=== PATIENT | male | born 1955 | race Asian ===

== ENCOUNTER 2019-01-28 11:23 | Inpatient (IN) | payer MEDICARE, MEDICAID ==
[~2019-01-28] VITALS: Ht 170.2 cm; Wt 62.6 kg
[2019-01-28] MEDS ORDERED: AMLO5TAB9 PO (11:46)
[2019-01-28] MEDS ORDERED: ATOR80TA PO (11:46)
[2019-01-28] MEDS ORDERED: LOSA100T31 PO (11:46)
[2019-01-28] MEDS ORDERED: COLC0.6C3 PO (11:46)
[2019-01-28] MEDS ORDERED: ALPR0.5T8 PO (11:46)
[2019-01-28] MEDS ORDERED: DULO60CA45 GT (11:46)
[2019-01-28] MEDS ORDERED: DONE5TAB34 PO (11:46)
[2019-01-28] MEDS ORDERED: CARV25TA2 PO (11:46)
[2019-01-28] MEDS ORDERED: ACET650T10 PO (11:46)
[2019-01-28 11:49] LABS: BASOPHILS # (AUTO) 0.1 K/uL (0.0-8.0); BASOPHILS % (AUTO) 0.7 % (0.0-2.0); EOSINOPHILS # (AUTO) 0.1 K/uL (0.0-0.7); EOSINOPHILS % (AUTO) 1.5 % (0.0-7.0); HEMATOCRIT 40.7 % (36.7-47.1); HEMOGLOBIN 13.8 g/dL (12.5-16.3); LYMPHOCYTES # (AUTO) 1.5 K/uL (20.0-40.0); LYMPHOCYTES % (AUTO) 16.2 % (20.5-51.5); MEAN CORPUSCULAR HEMOGLOBIN 30.8 uug (23.8-33.4); MEAN CORPUSCULAR HGB CONC 34 g/dL (32.5-36.3); MEAN CORPUSCULAR VOLUME 90.7 fL (73.0-96.2); MONOCYTES # (AUTO) 0.9 K/uL (2.0-10.0); MONOCYTES % (AUTO) 10.1 % (0.0-11.0); NEUTROPHILS # (AUTO) 6.7 K/uL (1.8-8.9); NEUTROPHILS % (AUTO) 71.5 % (38.5-71.5); PLATELET COUNT (AUTO) 289 K/uL (152-348); RED BLOOD CELL COUNT(AUTO) 4.49 MIL/uL (4.06-5.63); WHITE BLOOD COUNT (AUTO) 9.3 K/uL (3.6-10.2)
[2019-01-28 11:55] LABS: CREATININE 1.4 mg/dL (0.6-1.3); POTASSIUM 4.1 mmol/L (3.5-5.1)
[2019-01-28 12:01] LABS: BILIRUBIN,DIRECT 0.2 mg/dL (0.0-0.2); BILIRUBIN,TOTAL 0.9 mg/dL (0.2-1.0); TOTAL PROTEIN, SERUM 7.4 g/dL (6.4-8.2)
--- NOTE | 2019-01-28 12:46 | NUR ---
Patient is resting comfortably on gurney with eyes closed, easily arousable. PATIENT IS PAIN FREE AT THIS TIME. Patient is waiting for results and disposition.
[2019-01-28 13:33] LABS: *BILIRUBIN,URIN NEGATIVE (NEGATIVE); *BLOOD, URINE NEGATIVE (NEGATIVE); *CLARITY,URINE CLEAR (CLEAR); *COLOR,URINE YELLOW (YELLOW); *KETONES,URINE NEGATIVE (NEGATIVE); *UROBILINOGEN,URINE 0.2 E.U./dl (NORMAL); LEUKOCYTE ESTERASE ,URINE NEGATIVE (NEGATIVE); NITRITE, URINE NEGATIVE (NEGATIVE); UGLUCOSE NEGATIVE (NEGATIVE)
--- NOTE | 2019-01-28 13:47 | NUR ---
Patient admitted to telemetry room 308, under care of Dr. Marroquin. Belongings List completed. MRSA swab sent to lab.
[2019-01-28] MEDS ORDERED: HYDROCODONE/APAP 5-325MG TABLET PO PRN (14:00)
[2019-01-28] MEDS ORDERED: ACETAMINOPHEN 325 MG TABLET PO PRN (14:00)
[2019-01-28] MEDS ORDERED: Z GUARD REMEDY PASTE 57 GM TUBE TOP PRN (14:00)
[2019-01-28] MEDS ORDERED: MAGNESIUM HYDROXIDE 30 ML LIQUID UDC PO PRN (14:00)
[2019-01-28] MEDS ORDERED: ONDANSETRON 4 MG/2 ML VIAL IV PRN (14:00)
--- NOTE | 2019-01-28 15:00 | NUR ---
ADMITTED FROM [facility] ER WITH ADMITTING DX OF WEAKNESS. AWAKE ALERT AND VERBALLY RESPONSIVE BUT SPEECH IS SLURRED DUE TO HX OF CVA IN THE PAST. TESTED FOR SWALLOWING PATIENT ABLE TO TOLERATE THIN LIQUID, NO SS OF CHOKING, COUGHING OR ASPIRATION. PATIENT HAS A GT INTACT BUT PATIENT IS SAYING "NOT BEING USED" SR ON MONITOR. ROUTINE ADMISSION ASSESSMENT INITIATED. DR HOOK AWARE OF ADMISSION
[2019-01-28 16:00] VITALS: BP 114/62
[2019-01-28] MEDS: CARVEDILOL 25 MG TABLET PO SCH (17:21)
[2019-01-28] MEDS: IV NS 1000 ML 1,000 ML IV PRN (17:23)
--- NOTE | 2019-01-28 19:20 | NUR ---
RECEIVED PT AWAKE, ALERT AND ORIENTEDX3. PT SHOWS NO SIGNS OF ACUTE DISTRESS. IV INTACT. PT HAS A GT INTACT.SAFETY AND COMFORT PROVIDED. WILL CONTINUE TO MONITOR.
[2019-01-28 19:30] VITALS: BP 116/81
[2019-01-28] MEDS: ATORVASTATIN 40 MG TABLET PO SCH (20:26)
[2019-01-28] MEDS: ALPRAZOLAM 0.5 MG TABLET PO SCH (20:26)
[2019-01-28] MEDS: DONEPEZIL 5 MG TABLET PO SCH (20:26)
[2019-01-28] MEDS: ENOXAPARIN SODIUM 40 MG/0.4 ML DISP.SYRIN SQ SCH (20:27)
[2019-01-28] MEDS ORDERED: INFLUENZA VACCINE 2019-2020 0.5 ML DISP.SYRIN IM ONE (21:00)
[2019-01-29 00:30] VITALS: BP 118/79
[2019-01-29 05:03] VITALS: BP 118/91
--- NOTE | 2019-01-29 06:20 | NUR ---
PT SLEPT THROUGHOUT THE SHIFT. PT SHOWS NO SIGNS OF ACUTE DISTRESS. IV INTACT. PRESCRIBED MEDICATION GIVEN AND PT TOLERATED IT WELL. PT REFUSED HIS SEQUENTIAL COMPRESSION DEVICE. SAFETY AND COMFORT PROVIDED. WILL ENDORSE TO INCOMING NURSE FOR CONTINUITY OF CARE.
[2019-01-29 06:37] LABS: BASOPHILS % (AUTO) 0.3 % (0.0-2.0); EOSINOPHILS # (AUTO) 0.2 K/uL (0.0-0.7); EOSINOPHILS % (AUTO) 1.8 % (0.0-7.0); HEMATOCRIT 40.6 % (36.7-47.1); HEMOGLOBIN 13.7 g/dL (12.5-16.3); LYMPHOCYTES # (AUTO) 1.4 K/uL (20.0-40.0); LYMPHOCYTES % (AUTO) 15.7 % (20.5-51.5); MEAN CORPUSCULAR HGB CONC 34 g/dL (32.5-36.3); MEAN CORPUSCULAR VOLUME 92.4 fL (73.0-96.2); MONOCYTES # (AUTO) 0.7 K/uL (2.0-10.0); MONOCYTES % (AUTO) 8.3 % (0.0-11.0); NEUTROPHILS # (AUTO) 6.4 K/uL (1.8-8.9); NEUTROPHILS % (AUTO) 73.9 % (38.5-71.5); PLATELET COUNT (AUTO) 248 K/uL (152-348); WHITE BLOOD COUNT (AUTO) 8.7 K/uL (3.6-10.2)
[2019-01-29] MEDS: IV NS 1000 ML 1,000 ML IV PRN ×2 (06:43→21:23)
[2019-01-29 07:17] LABS: CREATININE 1.5 mg/dL (0.6-1.3); MAGNESIUM 1.6 mg/dL (1.8-2.4)
[2019-01-29 07:20] LABS: THYROID STIMULATING HORMONE 1.358 mIU/mL (0.358-3.740)
--- NOTE | 2019-01-29 08:00 | NUR ---
AWAKE ALERT AND RESPONDING APPROPRIATELY. NO SS OF PAIN OR DISTRESS. SR ON MONITOR
[2019-01-29] MEDS: DULOXETINE 60 MG CAPSULE.DR PO SCH (08:57)
[2019-01-29] MEDS: CARVEDILOL 25 MG TABLET PO SCH ×2 (08:58→16:45)
[2019-01-29] MEDS: AMLODIPINE 5 MG TABLET PO SCH (08:59)
[2019-01-29] MEDS: LOSARTAN POTASSIUM 50 MG TABLET PO SCH (08:59)
[2019-01-29] MEDS ORDERED: INFLUENZA VACCINE 2019-2020 0.5 ML DISP.SYRIN IM ONE ×2 (09:00→17:00)
--- NOTE | 2019-01-29 10:00 | NUR ---
SEEN BY DR MONROE FOR NEPHRO FOLLOW-UP SEE NOTES
[2019-01-29 11:05] VITALS: BP 105/68
--- NOTE | 2019-01-29 12:30 | NUR ---
EATING WELL WITHOUT ANY DIFFICULTY, NO SS OF ASPIRATION OR CHOKING. AFEBRILE SR ON MONITOR
--- NOTE | 2019-01-29 15:02 | NUR ---
REMAINS STABLE, NO ACUTE CHANGE. AFEBRILE. REMAINS SR ON MONITOR
[2019-01-29 15:16] VITALS: BP 105/71
[2019-01-29] MEDS ORDERED: MAGNESIUM SULFATE/D5W 100 ML IV SCH (16:00)
--- NOTE | 2019-01-29 19:20 | NUR ---
Received patient lying in bed. AAOx3. In no acute distress. Appears comfortable. Denies any pain or SOB. NSR on tele at 77/min. IV site on left hand intact and patent. IVF infusing. Needs assessed and attended to. Safety measure initiated and call cruz within reach.
[2019-01-29 19:51] VITALS: BP 111/71
[2019-01-29] MEDS: ALPRAZOLAM 0.5 MG TABLET PO SCH (20:30)
[2019-01-29] MEDS: ATORVASTATIN 40 MG TABLET PO SCH (20:31)
[2019-01-29] MEDS: DONEPEZIL 5 MG TABLET PO SCH (20:31)
[2019-01-29] MEDS: ENOXAPARIN SODIUM 40 MG/0.4 ML DISP.SYRIN SQ SCH (20:31)
[2019-01-30 00:49] VITALS: BP 131/90
[2019-01-30 05:34] VITALS: BP 123/90
--- NOTE | 2019-01-30 06:18 | NUR ---
AOx3.Slept well last night. In no acute distress. NSR on tele at 84/min. IV site on left hand intact and patent. IVF infusing. Safety measure maintained and call cruz within reach.
[2019-01-30 06:44] LABS: CREATININE 1.4 mg/dL (0.6-1.3); MAGNESIUM 1.8 mg/dL (1.8-2.4); POTASSIUM 3.6 mmol/L (3.5-5.1)
--- NOTE | 2019-01-30 08:00 | NUR ---
AWAKE ALERT AND ANSWERS QUESTIONS APPROPRIATELY, NO SS OF PAIN OR DISTRESS, RA SATURATING 100% SR ON MONITOR
[2019-01-30] MEDS: AMLODIPINE 5 MG TABLET PO SCH (08:21)
[2019-01-30] MEDS: DULOXETINE 60 MG CAPSULE.DR PO SCH (08:21)
[2019-01-30] MEDS: LOSARTAN POTASSIUM 50 MG TABLET PO SCH (08:21)
[2019-01-30] MEDS: CARVEDILOL 25 MG TABLET PO SCH ×2 (08:22→17:14)
[2019-01-30] MEDS: IV NS 1000 ML 1,000 ML IV PRN (09:46)
[2019-01-30 11:36] VITALS: BP 130/95
--- NOTE | 2019-01-30 12:00 | NUR ---
SEEN BY PT,OT SEE NOTES.
--- NOTE | 2019-01-30 13:00 | NUR ---
GOOD AMOUNT ON PO INTAKE WITH MEALS SEE INCUBATOR MACHINE OPERATOR NOTES
[2019-01-30 15:57] VITALS: BP 110/80
--- NOTE | 2019-01-30 17:58 | NUR ---
CONTINUE WITH CURRENT TX PLAN. NO SS OF PAIN OR DISTRESS.
--- NOTE | 2019-01-30 19:20 | NUR ---
Received patient lying in bed. AAOx3. In no acute distress. Denies any pain or SOB. IV site on left hand intact and patent. Needs assessed and attended to. at bedside. Safety measure initiated and call cruz within reach.
[2019-01-30 20:00] VITALS: BP 114/72
[2019-01-30] MEDS: ATORVASTATIN 40 MG TABLET PO SCH (20:09)
[2019-01-30] MEDS: ALPRAZOLAM 0.5 MG TABLET PO SCH (20:09)
[2019-01-30] MEDS: DONEPEZIL 5 MG TABLET PO SCH (20:09)
[2019-01-30] MEDS: ENOXAPARIN SODIUM 40 MG/0.4 ML DISP.SYRIN SQ SCH (20:10)
[2019-01-31 05:41] VITALS: BP 127/93
--- NOTE | 2019-01-31 06:28 | NUR ---
AOx3. Slept well last night. In no acute distress. No complain of pain or SOB. IV site on left hand remains intact and patent. Safety measure maintained and call cruz within reach.
--- NOTE | 2019-01-31 07:30 | NUR ---
Patient calm and comfortable with no signs of distress ; patient call light and safety devices in place. Patient will continue to be monitored.
[2019-01-31] MEDS: LOSARTAN POTASSIUM 50 MG TABLET PO SCH (08:29)
[2019-01-31] MEDS: DULOXETINE 60 MG CAPSULE.DR PO SCH (08:29)
[2019-01-31] MEDS: CARVEDILOL 25 MG TABLET PO SCH (08:30)
[2019-01-31] MEDS: AMLODIPINE 5 MG TABLET PO SCH (08:30)
[2019-01-31] MEDS ORDERED: ATOR40TA PO (11:55)
[2019-01-31 11:56] VITALS: BP 107/80
--- NOTE | 2019-01-31 14:20 | NUR ---
Patient discharged to [facility] in stable condition , report given Taisha RN at facility; Patient medication compliant during stay; at bedside; patient and educated on patient stay and diagnosis. Patient left in ambulance back to home facility.
== END 2019-01-31 14:35 | DRG 73 ==
LOC: ER 11:23 → TELE3 14:44 → MEDSURG3 01-30 11:33
DX: G90.8 Other disorders of autonomic nervous system (principal); N17.0 Acute kidney failure with tubular necrosis; I69.351 Hemiplegia and hemiparesis following cerebral infarction affecting right dominant side; N17.9 Acute kidney failure, unspecified; E44.1 Mild protein-calorie malnutrition; I12.9 Hypertensive chronic kidney disease with stage 1 through stage 4 chronic kidney disease, or unspecified chronic kidney disease; N18.3 Chronic kidney disease, stage 3 (moderate); E83.42 Hypomagnesemia; F32.9 Major depressive disorder, single episode, unspecified; I25.2 Old myocardial infarction; I70.0 Atherosclerosis of aorta; M10.9 Gout, unspecified; Z93.1 Gastrostomy status
CPT/HCPCS: 36415; 70030-TC; 71045; 83605; 83735; 84100; 84443; 85025; 85730; 87040; 87086; 90686; 93005; 93307; A4663; G0378; J1650; J3475; J7030